=== PATIENT | female | born 1995 | race Caucasian/White ===

== ENCOUNTER → 2024-04-21 | Outpatient (CLI) | payer BC ==
--- NOTE | 2024-04-21 13:47 | US ---
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 G0. TECHNIQUE: . Transabdominal sonographic images of the pelvis were acquired. Transvaginal sonographi c images were medically necessary to better assess the following anatomy: ovaries Date of LMP: over 2 months ago EXAM MEASUREMENTS: Uterus: 7.0 x 4.3 x 2.8 cm Endometrial Stripe: 1.1 cm Right Ovary: 2.7 x 2.5 x 1.8 cm Left Ovary: 2.5 x 1.9 x 1.2 cm 1. Uterus: Retroverted wnl 2. Endometrium: wnl 3. Right Ovary: dominant follicle seen measuring 1.3 x 1.4 x 1.1cm 4. Left Ovary: not well visualized, appears wnl 5. Bilateral Adnexa: free fluid seen in left adnexa 6. Posterior cul-de-sac: free fluid seen IMPRESSION: 1 dominant right ovarian follicle.
== END | disposition home or self-care (01) ==
LOC: RADUSWWP 04-05 12:18
PROVIDERS: ATTEND Family Medicine
DX: E28.2 Polycystic ovarian syndrome (principal)
CPT/HCPCS: 76830; 76856